=== PATIENT | female | born 1980 | race Caucasian/White ===

== ENCOUNTER 2017-12-13 12:30 | Inpatient (IN) | payer OTHER ==
[~2017-12-13] VITALS: Ht 175.3 cm; Wt 87.0 kg
[2017-12-14] VITALS (11 sets, daily range): BP systolic 94–120; BP diastolic 51–65; PULSE 53–60; RESP 14–21; TEMP 97.7–98.8; O2SAT 97–98
[2017-12-14] MEDS ORDERED: OXYTOCIN 10 UNIT/ML AMP IV ONE (12:00)
[2017-12-14] MEDS ORDERED: DEXAMETHASONE SOD PHOS 4 MG/ML VIAL IV ONE (12:00)
[2017-12-14] MEDS ORDERED: ceFAZolin INJ 1,000 MG VIAL IV ONE (12:00)
[2017-12-14] MEDS ORDERED: ONDANSETRON HCL 4 MG/2 ML VIAL IV ONE (12:00)
[2017-12-14] MEDS ORDERED: CITRIC ACID-SODIUM CITRATE LIQ 30 ML UDC ONE (12:16)
[2017-12-14] MEDS ORDERED: MORPHINE SULFATE PF 5 MG/10 ML VIAL ONE (12:29)
[2017-12-14] MEDS ORDERED: ACETAMINOPHEN 1000 MG/100 ML 100 ML IV ONE (12:29)
[2017-12-14 12:37] LABS: AUTOMATED NEUTROPHIL # 5.9 TH/MM3 (1.8-7.7); BASOPHIL # 0.1 TH/MM3 (0-0.2); BASOPHIL % 0.8 % (0.0-2.0); EOSINOPHIL % 0.4 % (0.0-4.0); HEMATOCRIT 37.3 % (35.0-46.0); HEMOGLOBIN 12.5 GM/DL (11.6-15.3); LYMPH % 19.6 % (9.0-44.0); LYMPHOCYTE # 1.6 TH/MM3 (1.0-4.8); MEAN CELL VOLUME 95.5 FL (80.0-100.0); MEAN CORPUSCULAR HEMOGLOBIN 31.9 PG (27.0-34.0); MEAN CORPUSCULAR HGB CONC 33.4 % (32.0-36.0); MEAN PLATELET VOLUME 9.5 FL (7.0-11.0); MONO % 6.5 % (0.0-8.0); MONOCYTE # 0.5 TH/MM3 (0-0.9); NEUT % 72.7 % (16.0-70.0); PLATELET COUNT 184 TH/MM3 (150-450); RED BLOOD COUNT 3.91 MIL/MM3 (4.00-5.30); RED CELL DISTRIBUTION WIDTH 13.8 % (11.6-17.2); WHITE BLOOD COUNT 8.2 TH/MM3 (4.0-11.0)
[2017-12-14] MEDS ORDERED: KETOROLAC TROMETHAMINE 60 MG/2 ML (IM) VIAL IM PRN (13:30)
[2017-12-14] MEDS ORDERED: oxyCODONE/ACETAMINOPHEN 5 MG/325 MG TAB PO PRN (13:30)
[2017-12-14] MEDS ORDERED: SIMETHICONE 80 MG CHEWABLE TAB PO PRN (13:30)
[2017-12-14] MEDS ORDERED: SODIUM CHLORIDE 0.9% FLUSH 10 ML FLUSH IV FLUSH PRN (13:30)
[2017-12-14] MEDS ORDERED: OXYTOCIN 30 UNITS-500ML PREMIX 500 ML IV ONE (13:30)
[2017-12-14] MEDS ORDERED: ONDANSETRON HCL 4 MG/2 ML VIAL IV PUSH PRN (13:30)
[2017-12-14] MEDS ORDERED: ceFAZolin 2 GM PREMIX 50 ML IV SCH (13:45)
[2017-12-14] MEDS ORDERED: LACTATED RINGER'S 1000 ML INJ 1,000 ML IV SCH (18:28)
[2017-12-14] MEDS ORDERED: SODIUM CHLORIDE 0.9% FLUSH 10 ML FLUSH IV FLUSH SCH (21:00)
[2017-12-14] MEDS ORDERED: OXYTOCIN 30 UNITS-500ML PREMIX 500 ML IV PRN (23:30)
[2017-12-15 03:45] VITALS: BP 108/60; PULSE 62; RESP 18; TEMP 98.3
--- NOTE | 2017-12-15 07:07 | HHI.OB ---
Subjective Post Operative Day: 1 Remarks pain controlled, mod lochia, +void/flatus, chaim po Objective Vitals/I&O Vital Signs Date Time Temp Pulse Resp B/P (MAP) Pulse Ox O2 Delivery O2 Flow Rate FiO2 12/15/17 03:45 98.3 62 18 108/60 (76) 12/14/17 23:45 120/64 (82) 12/14/17 23:45 98.8 60 18 12/14/17 19:45 55 18 100/57 (71) 12/14/17 19:45 98.2 12/14/17 15:41 18 12/14/17 15:15 97.9 97 12/14/17 15:15 55 16 108/64 (79) 12/14/17 14:55 97 12/14/17 14:55 55 17 109/60 (76) 12/14/17 14:41 56 108/65 (79) 12/14/17 14:41 14 97 12/14/17 14:26 100/61 (74) 12/14/17 14:26 56 16 97 12/14/17 14:08 53 14 94/51 (65) 97 12/14/17 13:54 60 18 105/54 (71) 98 12/14/17 13:38 97.7 12/14/17 13:37 98 12/14/17 13:37 54 21 109/53 (71) Result Diagram: 12/14/17 1212 Objective Remarks GENERAL: Well-nourished, well-developed patient. CARDIOVASCULAR: Regular rate and rhythm without murmurs, gallops, or rubs. RESPIRATORY: Breath sounds equal bilaterally. No accessory muscle use. ABDOMEN/GI: Abdomen soft, non-tender, bowel sounds present. dressing: Clean, dry and intact. Fundus: Firm, non-tender at umbilicus. GENITOURINARY: Light to moderate bleeding. EXTREMITIES: No cyanosis or edema, non-tender, without signs of DVT. Medications and IVs Current Medications Medications (Trade) Dose Ordered Sig/Daniel Route Start Time Stop Time Status Last Admin Lactated Ringer's 1,000 ml @ 100 mls/hr Q10H IV 12/14/17 18:28 12/15/17 14:27 12/15/17 06:29 Oxytocin 500 ml @ 100 mls/hr UNSCH X1 PRN IV 12/14/17 23:30 12/15/17 23:29 (NS Flush) 2 ml BID IV FLUSH 12/14/17 21:00 (NS Flush) 2 ml UNSCH PRN IV FLUSH 12/14/17 13:30 (Mylicon Chew) 80 mg QID PRN PO 12/14/17 13:30 (Motrin) 600 mg Q6H PRN PO 12/14/17 13:30 (Toradol Inj) 30 mg Q6H PRN IM 12/14/17 13:30 12/15/17 13:29 (Percocet 5-325 Mg) 1 tab Q4H PRN PO 12/14/17 13:30 (Percocet 5-325 Mg) 2 tab Q4H PRN PO 12/14/17 13:30 (M-M-R Ii Inj) 0.5 ml ONCE ONCE SQ 12/15/17 16:00 12/15/17 16:01 (Boostrix Inj) 0.5 ml ONCE ONCE IM 12/15/17 16:00 12/15/17 16:01 (Zofran Inj) 4 mg Q6H PRN IV PUSH 12/14/17 13:30 Cefazolin Sodium/ Dextrose 50 ml @ 100 mls/hr MECHANICAL CAR CHECKER IV 12/14/17 13:45 12/17/17 13:44 (Flu (Quadrivalent) Vaccine Inj) 0.5 ml ONCE ONCE IM 12/15/17 10:00 12/15/17 10:01 Assessment/Plan Problem List: (1) delivery, delivered, current hospitalization ICD Codes: O82 - Encounter for delivery without indication Plan: routine po care Kishore Bertrand MD Dec 15, 2017 07:07
[2017-12-15 07:50] LABS: AUTOMATED NEUTROPHIL # 8.2 TH/MM3 (1.8-7.7); BASOPHIL % 0.2 % (0.0-2.0); EOSINOPHIL # 0.1 TH/MM3 (0-0.4); EOSINOPHIL % 0.5 % (0.0-4.0); HEMATOCRIT 27.2 % (35.0-46.0); HEMOGLOBIN 9.3 GM/DL (11.6-15.3); LYMPH % 19.5 % (9.0-44.0); LYMPHOCYTE # 2.2 TH/MM3 (1.0-4.8); MEAN CELL VOLUME 95.2 FL (80.0-100.0); MEAN CORPUSCULAR HEMOGLOBIN 32.5 PG (27.0-34.0); MEAN CORPUSCULAR HGB CONC 34.1 % (32.0-36.0); MEAN PLATELET VOLUME 8.6 FL (7.0-11.0); MONO % 6.7 % (0.0-8.0); MONOCYTE # 0.8 TH/MM3 (0-0.9); NEUT % 73.1 % (16.0-70.0); PLATELET COUNT 156 TH/MM3 (150-450); RED BLOOD COUNT 2.85 MIL/MM3 (4.00-5.30); RED CELL DISTRIBUTION WIDTH 13.8 % (11.6-17.2); WHITE BLOOD COUNT 11.3 TH/MM3 (4.0-11.0)
[2017-12-15 08:00] VITALS: BP 101/66; PULSE 61; RESP 18; TEMP 98.2; O2SAT 97
[2017-12-15] MEDS ORDERED: INFLUENZA VIRUS VACCINE (QUADRIVALENT) 0.5 ML SYR IM ONE (10:00)
[2017-12-15 12:09] VITALS: BP 114/56; PULSE 88; RESP 18; TEMP 97.9; O2SAT 96
[2017-12-15 15:45] VITALS: BP 98/60; PULSE 70; RESP 18; TEMP 98; O2SAT 95
[2017-12-15] MEDS ORDERED: MEASLES, MUMPS, RUBELLA VACCINE 0.5 ML VIAL SQ ONE (16:00)
[2017-12-15] MEDS ORDERED: DIPHTH/TETANUS/ACEL PERTUSSIS (BOOSTER) 0.5 ML VIAL/PFS IM ONE (16:00)
[2017-12-15] MEDS: IBUPROFEN 600 MG TAB PO PRN (19:44)
[2017-12-15] MEDS: oxyCODONE/ACETAMINOPHEN 5 MG/325 MG TAB PO PRN (19:44)
[2017-12-15 19:45] VITALS: BP 113/59; PULSE 63; RESP 18; TEMP 98.1
[2017-12-15 20:45] VITALS: RESP 18
[2017-12-16] MEDS: IBUPROFEN 600 MG TAB PO PRN ×2 (06:38→13:22)
[2017-12-16] MEDS: oxyCODONE/ACETAMINOPHEN 5 MG/325 MG TAB PO PRN ×2 (06:38→13:22)
[2017-12-16] MEDS ORDERED: IBUP-232 PO (09:46)
[2017-12-16] MEDS ORDERED: OXYC1TAB63 PO (09:46)
--- NOTE | 2017-12-16 09:48 | HHI.DS ---
Admission Date Dec 14, 2017 at 11:09 Discharge Date: Dec 16, 2017 Admitting Diagnosis IUP@term, previous , undesired fertility Diagnosis: Delivery Date: Dec 14, 2017 : Repeat Reason: repeat Infant: Female, Single Hospital Course pt presented for repeat and BTL. by POD 2 pt was voiding, passing gas and requesting d/c home. Pt Condition on Discharge: Stable Discharge Disposition: Discharge Home Discharge Instructions Diet Instructions: As Tolerated, No Restrictions Additional Diet Instructions: Drink at least 8 - 16 oz bottles of water a day Activities You Can Perform: Shower Only-No Bath Activities to Avoid: Prolonged Standing, Strenuous Activity, Sexual Activity Additional Activity Instruc.: No driving until off pain medications Do not lift anything heavier than your baby in an infant carrier Kishore Bertrand MD Dec 16, 2017 09:48
--- NOTE | 2017-12-16 12:00 | MP ---
cc: ISAAC MORGAN M.D. DATE OF SURGERY: 12/14/2017 PREOPERATIVE DIAGNOSIS: Intrauterine at 39 weeks gestation with previous section and undesired fertility. POSTOPERATIVE DIAGNOSIS Intrauterine at 39 weeks gestation with previous section and undesired fertility. PROCEDURE PERFORMED: Repeat low transverse section with bilateral tubal ligation. OPERATING SURGEON Dr. Valentina Morgan. ANESTHESIA: Spinal. FINDINGS AT SURGERY: Included a viable female, 8 pounds 13 ounces with Apgars 9 and 9. Normal appearing tubes and ovaries bilaterally. BLOOD LOSS: 800 cc COMPLICATIONS: None. PROCEDURE IN DETAIL: After proper consents were obtained, blood had been typed and screened. The patient was taken to the operating room where spinal anesthetic was placed. She was then placed in dorsal position, sterilely prepped and draped and a Meadows catheter was placed. At this time using a sharp knife, a Pfannenstiel's skin incision was performed. This was carried down to the fascia using Bovie cautery. Fascia was nicked in midline extended superolaterally on each side. We had blunt dissection of the muscles off of the fascia. Peritoneum identified and grasped with two hemostats, entered sharply with a Metzenbaum scissors. This was extended superiorly inferiorly paying close attention to the bladder. Bladder blade was placed. Bladder flap was developed, bladder blade was replaced, transverse incision was made in the lower uterine segment. Rupture of membranes revealed clear fluid. We had controlled delivery of the vertex. We used the vacuum to help us finish the delivery. Bulb suction to the oropharynx and nares, controlled delivery of the body followed. Cord was clamped x2, cut in between and the was handed to the team in attendance. A viable female weighing 8 pounds 13 ounces without Apgars 9 and 9. At this time cord blood sample was obtained. Placenta was removed. Uterus was exteriorized, wiped clean of clots and debris. The uterine incision was closed with a #1 chromic suture starting at each apex meeting in the midline in a running interlocking fashion. Excellent hemostasis was noted. We then turned our attention to her right tube. We grasped it in the midaxillary portion with a Bergoo. We placed a zero plain tie beneath a 1.5 cm segment of tube. We placed a second tie beneath that. We cut that tube off for permanent pathology. Hemostasis was noted. We did the exact same procedure on the left side without difficulty. We then irrigated the abdominal pelvic cavity. We placed the uterus back into the cavity, making sure that the tubal sites were hemostatic. We then went ahead and closed the muscles using a #1 chromic suture x1. I then closed the fascia starting at each apex meeting in the midline in a running fashion. Irrigation was performed of the subcu. Hemostasis was achieved with Bovie cautery. Skin was closed with cb. All sponge, lap, and needle counts were correct x3. MD MIKI Nagel/DAVEY /2:48 PM /11:48 AM
== END 2017-12-16 15:05 | disposition home or self-care (01) | DRG 766 ==
LOC: H2EB 12-14 11:09 → H1EA 12-14 16:03
PROVIDERS: ADMIT Obstetrics & Gynecology; ATTEND Obstetrics & Gynecology
PROC: 10D00Z1 Extraction of Products of Conception, Low, Open Approach (ICD-10-PCS; principal; 2017-12-14)
PROC: 0UB70ZZ Excision of Bilateral Fallopian Tubes, Open Approach (ICD-10-PCS; 2017-12-14)
DX: O34.219 Maternal care for unspecified type scar from previous cesarean delivery (principal); Z30.2 Encounter for sterilization; Z23 Encounter for immunization; Z3A.39 39 weeks gestation of pregnancy; Z37.0 Single live birth
CPT/HCPCS: 85025; 86850; 86900; 86901; 88302; 90686; 90715; J0131; J0690; J1100; J2274; J2405; J2590; J7120; Q2038